=== PATIENT | female | born 1990 | race Caucasian/White ===

== ENCOUNTER 2020-02-12 19:44 | Emergency (ER) | payer BC, OTHER ==
--- NOTE | 2020-02-12 20:09 | ED Lower Extremity ---
General Chief Complaint: Lower Extremity Stated Complaint: RT ANKLE/LEG PAIN Source: patient History of Present Illness Date Seen by Provider: Feb 12, 2020 Time Seen by Provider: 20:04 Initial Comments 29-year-old female presenting with right ankle pain after injury while playing volleyball tonight. This occurred just prior to arrival in the emergency depar tment. She was going forward trying to get to a ball and felt like her ankle rolled to the outside. She had a sudden pop and increased pain. She was having difficulty walking on the foot due to pain. There was mild swelling. She has had previous sprains to the ankle but never anything this severe. She has no numbness or tingling. Allergies and Home Medications Allergies Coded Allergies: No Known Drug Allergies (Unverified , 02/12/20) Home Medications Ibuprofen 800 Mg Tablet, 800 MG PO Q8H PRN for PAIN Prescribed by: KOLTON BARRAGAN on 02/12/202113 Patient Home Medication List Home Medication List Reviewed: Yes Review of Systems Constitutional: No chills, No fever EENTM: no symptoms reported Respiratory: no symptoms reported Cardiovascular: no symptoms reported Gastrointestinal: no symptoms reported Genitourinary: no symptoms reported Musculoskeletal: see HPI Skin: no symptoms reported Psychiatric/Neurological: Denies Numbness, Denies Paresthesia Past Rqhuwms-Dymctt-Emxurf Hx Past Med/Social Hx: Reviewed Nursing Past Med/Soc Hx Patient Social History Alcohol Use: Denies Use Recreational Drug Use: No Smoking Status: Never a Smoker Recent Foreign Travel: No Contact w/Someone Who Travel: No Recent Hopitalizations: No Physical Abuse: No Sexual Abuse: No Past Medical History Surgeries: No Respiratory: No Cardiac: No Neurological: No Genitourinary: No Gastrointestinal: No Musculoskeletal: No Endocrine: No HEENT: No Cancer: No Psychosocial: No Integumentary: No Blood Disorders: No Physical Exam Vital Signs Vital Signs - First Documented 02/12/20 19:50 Temp 37.4 Pulse 113 Resp 16 B/P (MAP) 133/77 (95) Pulse Ox 97 O2 Delivery Room Air Capillary Refill : Height, Weight, BMI Height: '" Weight: lbs. oz. kg; BMI Method: General Appearance: WD/WN, mild distress Cardiovascular: normal peripheral pulses Ankles: right ankle limited range of motion (limited range of motion due to pain), right ankle pain, right ankle soft tissue tenderness, right ankle swelling (mild lateral swelling and tenderness) Neurologic/Tendon: normal sensation Neurologic/Psychiatric: alert, oriented x 3 Skin: normal color, warm/dry Progress/Results/Core Measures Results/Orders My Orders Orders - KOLTON BARRAGAN MD Ankle 3 View Right (02/12/20 20:06) Ed Ortho/Other Supplies Order (02/12/20 21:10) Vital Signs/I&O 02/12/20 02/12/20 19:50 21:23 Temp 37.4 37.4 Pulse 113 113 Resp 16 16 B/P (MAP) 133/77 (95) 133/77 (95) Pulse Ox 97 97 O2 Delivery Room Air Room Air Progress Progress Note : Progress Note x-rays obtained of the right ankle and did not demonstrate any acute fracture or dislocation. Treat with Air splint and crutches for weightbearing as tolerated. Counseled on RICE treatment Advised if not better in 7 to 10 days to check with clinic or may need Orthopedics to see if might have hairline fracture or soft tissue injury requiring PT or more aggressive treatment She states she has access to crutches at home already Diagnostic Imaging Diagonstic Imaging: Xray Plain Films/CT/US/NM/MRI: ankle Comments [facility], [place] NAME: TOMEKA SILVESTRE [facility] REC#: [id number] PT STATUS: REG ER : 1990 PHYSICIAN: KOLTON BARRAGAN MD ADMIT DATE: 02/12/20/ER FS Signed Date of Exam:02/12/20 ANKLE 3 VIEW RIGHT INDICATION: Sports injury to right ankle. FINDINGS: 3 views. Ankle mortise in good alignment. Articulating surfaces are smooth. Joint spaces are well-maintained. No significant soft tissue swelling noted. IMPRESSION: Negative right ankle. Dictated by: Dictated on workstation # [id number] Dict: 02/12/202023 Trans: 02/12/202122 [facility] [id number] Interpreted by: SHANE STERLING MD Electronically signed by: SHANE STERLING MD 02/12/202122 Departure Impression Primary Impression: Sprain and strain of ankle Disposition: 01 HOME, SELF-CARE Condition: Stable Departure-Patient Inst. Decision time for Depature: 21:14 Referrals: ALBA BROWNE MD (PCP/Family) Primary Care Physician Patient Instructions: Ankle Sprain ED, How to Use Crutches Add. Discharge Instructions: Use air splint for ankle support over the next week. Use crutches for weight bearing as tolerated over the next week. If not improving then check with clinic as you may need repeat imaging or MRI to look for hairline fracture or soft tissue injury. Ice 20-30 minutes every few hours as needed for pain and swelling. Ibuprofen 800 mg every 8 hours as needed for pain and swelling. May alternate with acetaminophen for pain. Try to elevate your ankle and foot when you can to help with pain and swelling. All discharge instructions reviewed with patient and/or family. Voiced understanding. Scripts Ibuprofen (Ibuprofen) 800 Mg Tablet 800 MG PO Q8H PRN for PAIN for 10 Days, #30 TAB 0 Refills Prov: KOLTON BARRAGAN MD 02/12/20 KOLTON BARRAGAN MD Feb 12, 2020 20:09
--- NOTE | 2020-02-12 20:29 | Diagnostic Imaging Report ---
INDICATION: Sports injury to right ankle. FINDINGS: 3 views. Ankle mortise in good alignment. Articulating surfaces are smooth. Joint spaces are well-maintained. No significant soft tissue swelling noted. IMPRESSION: Negative right ankle. Dictated by: Dictated on workstation # [id number]
[2020-02-12] MEDS ORDERED: IBUP-1780 PO (21:14)
[2020-02-12 21:23] VITALS: BP 133/77
== END 2020-02-12 21:27 | disposition home or self-care (01) ==
LOC: EDUNIT# 19:44 → ER FS 19:46
DX: S93.401A Sprain of unspecified ligament of right ankle, initial encounter (principal); X50.1XXA Overexertion from prolonged static or awkward postures, initial encounter; Y93.68 Activity, volleyball (beach) (court)
CPT/HCPCS: 73610; 99283; L4350